=== PATIENT | male | born 1940 | race Caucasian/White ===

== ENCOUNTER 2017-07-06 12:39 | Inpatient (IN) | payer OTHER ==
[~2017-07-06] VITALS: Ht 180.3 cm; Wt 114.8 kg
[2017-07-06 14:31] VITALS: BP 125/73
[2017-07-06 15:23] LABS: CALCIUM 9.1 mg/dL (8.5-10.1); CREATININE 1.3 mg/dL (0.6-1.3); POTASSIUM 3.7 mmol/L (3.5-5.1)
[2017-07-06 15:24] LABS: INR 1.3; MPV 9.6 fl. (7.2-11.1); PROTIME 12.7 Seconds (9.20-11.50)
[2017-07-06 15:26] LABS: HEMOGLOBIN 13.6 gm/dL (14.0-18.0)
[2017-07-06 15:28] LABS: TOTAL BILIRUBIN 16.7 mg/dL (<0.1-1.0); TOTAL PROTEIN 7.4 g/dL (6.4-8.2)
[2017-07-06 15:36] LABS: ABSOLUTE BASOPHILS 0.1 thou/uL (0.0-0.2); ABSOLUTE LYMPHOCYTES 2.4 thou/uL (0.8-5.3); ABSOLUTE MONOCYTES 0.5 thou/uL (0.0-1.2); ABSOLUTE NEUTROPHILS 10.1 thou/uL (1.6-8.1); BASOPHILS 0.7 %; EOSINOPHILS 0.1 %; HEMATOCRIT 40.7 % (42.0-52.0); LYMPHOCYTES 18.6 %; MCHC 33.3 g/dL (28.0-37.0); MONOCYTES 3.7 %; NUCLEATED RBCS 0 /100WBC; PLATELET COUNT* 409 thou/uL (150-400); POLYS 76.9 %; RBC 4.52 mil/uL (4.50-6.00); RDW-CV 20.9 % (10.5-14.5); WBC 13.1 thou/uL (4.0-11.0)
[2017-07-06 15:53] LABS: ANISOCYTOSIS 1+; PLATELET ESTIMATE INCREASED
[2017-07-06 15:54] LABS: POIKILOCYTOSIS 1+; TARGET CELLS 1+
[2017-07-06 20:00] VITALS: BP 122/56
[2017-07-07 05:02] LABS: ALBUMIN 1.6 g/dL (3.4-5.0); CALCIUM 8.4 mg/dL (8.5-10.1); CREATININE 1.2 mg/dL (0.6-1.3); POTASSIUM 3.9 mmol/L (3.5-5.1); TOTAL BILIRUBIN 11.6 mg/dL (<0.1-1.0); TOTAL PROTEIN 5.8 g/dL (6.4-8.2)
[2017-07-07 05:56] LABS: RDW-CV 20.5 % (10.5-14.5)
[2017-07-07 05:58] LABS: HEMATOCRIT 33.7 % (42.0-52.0); MCH 30.1 pg (26.0-34.0); MCV 88.3 fL (80.0-100.0); NUCLEATED RBCS 0 /100WBC; PLATELET COUNT* 339 thou/uL (150-400); RBC 3.81 mil/uL (4.50-6.00); WBC 12.3 thou/uL (4.0-11.0)
[2017-07-07 06:13] LABS: HEMOGLOBIN 11.5 gm/dL (14.0-18.0)
[2017-07-07 07:04] LABS: ABSOLUTE LYMPHOCYTES 0.7 thou/uL (0.8-5.3); ABSOLUTE MONOCYTES 0.7 thou/uL (0.0-1.2); ABSOLUTE NEUTROPHILS 10.8 thou/uL (1.6-8.1); ANISOCYTOSIS 2+; PLATELET ESTIMATE ADEQUATE; TARGET CELLS 2+
[2017-07-07 09:00] VITALS: BP 138/78
[2017-07-07 16:00] VITALS: BP 135/71
[2017-07-07 20:35] VITALS: BP 129/64
[2017-07-08 04:33] LABS: MCV 88.2 fL (80.0-100.0); NUCLEATED RBCS 0 /100WBC
[2017-07-08 04:35] LABS: ABSOLUTE LYMPHOCYTES 3.9 thou/uL (0.8-5.3); ABSOLUTE MONOCYTES 0.5 thou/uL (0.0-1.2); ABSOLUTE NEUTROPHILS 4.1 thou/uL (1.6-8.1); BASOPHILS 0.3 %; EOSINOPHILS 0.4 %; HEMATOCRIT 34.4 % (42.0-52.0); HEMOGLOBIN 11.8 gm/dL (14.0-18.0); LYMPHOCYTES 45.7 %; MCH 30.3 pg (26.0-34.0); MCHC 34.4 g/dL (28.0-37.0); MONOCYTES 5.6 %; MPV 8.8 fl. (7.2-11.1); PLATELET COUNT* 352 thou/uL (150-400); RDW-CV 20.8 % (10.5-14.5); WBC 8.5 thou/uL (4.0-11.0)
[2017-07-08 04:49] LABS: ALBUMIN 1.6 g/dL (3.4-5.0); CALCIUM 8.1 mg/dL (8.5-10.1); CREATININE 1.1 mg/dL (0.6-1.3); MAGNESIUM 1.6 mg/dL (1.8-2.4); PHOSPHORUS* 3.1 mg/dL (2.5-4.9); POTASSIUM 4.2 mmol/L (3.5-5.1); PREALBUMIN 11.3 mg/dL (18.0-35.7); TOTAL BILIRUBIN 11.6 mg/dL (<0.1-1.0); TOTAL PROTEIN 5.7 g/dL (6.4-8.2)
[2017-07-08 06:07] LABS: URINE BLOOD NEGATIVE (Negative); URINE CLARITY CLEAR; URINE COLOR BROWN; URINE GLUCOSE-RANDOM 1+ (Negative); URINE KETONES NEGATIVE (Negative); URINE LEUKOCYTES-REFLEX NEGATIVE (Negative); URINE NITRITE-REFLEX NEGATIVE (Negative); URINE PROTEIN NEGATIVE (Negative); URINE UROBILINOGEN >= 8.0 E.U./dl (0.2-1.0)
[2017-07-08 06:14] LABS: AMP/METHAMP Negative (Negative); BARBITURATES Negative (Negative); BENZODIAZEPINES Negative (Negative); COCAINE Negative (Negative); METHADONE Negative (Negative); OPIATES Negative (Negative); PCP Negative (Negative); THC Negative (Negative)
[2017-07-08 06:24] LABS: ICTOTEST (BILI CONFIRMATORY) Positive (Negative); URINE BILIRUBIN 3+ (Negative)
[2017-07-08 08:30] VITALS: BP 132/68
[2017-07-08 20:00] VITALS: BP 122/69
[2017-07-09 00:09] VITALS: BP 150/78
[2017-07-09 04:34] LABS: HEMATOCRIT 33.6 % (42.0-52.0); HEMOGLOBIN 11.7 gm/dL (14.0-18.0); MCH 31.1 pg (26.0-34.0); MCHC 34.8 g/dL (28.0-37.0); MCV 89.4 fL (80.0-100.0); MPV 8.7 fl. (7.2-11.1); RBC 3.76 mil/uL (4.50-6.00); RDW-CV 20.4 % (10.5-14.5); WBC 7.6 thou/uL (4.0-11.0)
[2017-07-09 05:04] LABS: ALBUMIN 1.6 g/dL (3.4-5.0); CALCIUM 7.9 mg/dL (8.5-10.1); CREATININE 1.2 mg/dL (0.6-1.3); POTASSIUM 3.7 mmol/L (3.5-5.1); TOTAL BILIRUBIN 8.9 mg/dL (<0.1-1.0); TOTAL PROTEIN 5.5 g/dL (6.4-8.2)
[2017-07-09 07:30] VITALS: BP 143/79
[2017-07-09 20:20] VITALS: BP 143/75
[2017-07-10 02:09] LABS: HEPATITIS B SURFACE AG Negative (Negative)
[2017-07-10 05:04] LABS: HEMATOCRIT 34.3 % (42.0-52.0); HEMOGLOBIN 11.6 gm/dL (14.0-18.0); MCH 30.2 pg (26.0-34.0); MCHC 33.7 g/dL (28.0-37.0); MCV 89.6 fL (80.0-100.0); MPV 8.6 fl. (7.2-11.1); RBC 3.83 mil/uL (4.50-6.00); RDW-CV 19.3 % (10.5-14.5)
[2017-07-10 05:35] LABS: ALBUMIN 1.6 g/dL (3.4-5.0); CALCIUM 7.9 mg/dL (8.5-10.1); CREATININE 1.3 mg/dL (0.6-1.3); POTASSIUM 4.1 mmol/L (3.5-5.1); TOTAL BILIRUBIN 8.7 mg/dL (<0.1-1.0); TOTAL PROTEIN 5.6 g/dL (6.4-8.2)
[2017-07-10 13:11] LABS: CA 19-9 71 U/mL (0-35)
[2017-07-10 16:35] VITALS: BP 158/78
[2017-07-10 20:20] VITALS: BP 150/81
[2017-07-11 05:28] LABS: ALBUMIN 1.5 g/dL (3.4-5.0); CALCIUM 7.7 mg/dL (8.5-10.1); CREATININE 1.2 mg/dL (0.6-1.3); POTASSIUM 3.8 mmol/L (3.5-5.1); TOTAL BILIRUBIN 7.6 mg/dL (<0.1-1.0); TOTAL PROTEIN 5.2 g/dL (6.4-8.2)
[2017-07-11 05:35] LABS: ABSOLUTE BASOPHILS 0.1 thou/uL (0.0-0.2); ABSOLUTE EOSINOPHILS 0.1 thou/uL (0.0-0.7); ABSOLUTE LYMPHOCYTES 2.5 thou/uL (0.8-5.3); ABSOLUTE MONOCYTES 0.8 thou/uL (0.0-1.2); ABSOLUTE NEUTROPHILS 5.1 thou/uL (1.6-8.1); BASOPHILS 0.9 %; EOSINOPHILS 1.5 %; HEMOGLOBIN 11.3 gm/dL (14.0-18.0); LYMPHOCYTES 29.4 %; MCH 30.5 pg (26.0-34.0); MCHC 34.2 g/dL (28.0-37.0); MCV 89.1 fL (80.0-100.0); MONOCYTES 9.5 %; MPV 8.7 fl. (7.2-11.1); NUCLEATED RBCS 0 /100WBC; PLATELET COUNT* 301 thou/uL (150-400); POLYS 58.7 %; RBC 3.71 mil/uL (4.50-6.00); RDW-CV 18.8 % (10.5-14.5); WBC 8.6 thou/uL (4.0-11.0)
[2017-07-11 05:49] LABS: PREALBUMIN 10.1 mg/dL (18.0-35.7)
[2017-07-11 08:00] VITALS: BP 108/60
[2017-07-11 15:19] VITALS: BP 108/60
--- NOTE | 2017-07-12 16:13 | CON ---
[address] [address] CONSULTATION Name: KRYSTLE ALVAREZ Room: [address]#: [id number] Admission: 07/06/17 Attend Phys: Ryan Logan MD Discharge: 07/11/17 Date of : 42 Report #: [id number] THIS REPORT FOR: //name// CC: Wen Logan DATE OF SERVICE: 07/06/2017 REQUESTING PHYSICIAN: Ryan Logan M.D. HISTORY OF PRESENT ILLNESS: This is a 76-year-old male with a history of upper and lower endoscopy in April, which was significant for a few small polyps but otherwise negative. He reports that for the past 2 months, he has lost a total of 20 pounds as he has no appetite. The patient also had noticed that his urine had turned dark about 8-10 days ago. It was also brought to his attention that his skin has turned yellow. The patient denies any abdominal pain but complains of pruritus. He denies any nausea, vomiting or constipation, but reports that since his colonoscopy in April of 2017, he has had loose stool. PAST MEDICAL HISTORY: Significant for history of gastroesophageal reflux disease, gallbladder stones, kidney stones, jaundice and abnormal liver enzymes. ALLERGIES: Please refer to hospital MAR. MEDICATIONS: Please refer to hospital MAR. SOCIAL HISTORY: The patient denies alcohol use but smokes cigarettes. He lives at home with his family. FAMILY HISTORY: Negative for GI malignancy. PHYSICAL EXAMINATION: VITAL SIGNS: Reveals blood pressure of 125/73, respirations 16, pulse 67 and temperature is 98.4. LUNGS: Clear. CARDIOVASCULAR: Regular. ABDOMEN: Soft, mildly tender to palpation in the right lower quadrant. Bowel sounds are positive. SKIN: The patient is jaundiced and has multiple skin lesions as he has been scratching his arms. RADIOLOGICAL DATA: CT of abdomen and pelvis was obtained. This was significant for cholelithiasis without any evidence of acute cholecystitis. He also has diverticulosis without diverticulitis. Per this study, the liver, spleen and pancreas appeared normal. He has evidence of [place] [address] CONSULTATION Name: ALVAREZKRYSTLE Og Room: [address]#: [id number] Admission: 07/06/17 Attend Phys: Ryan Logan MD Discharge: 07/11/17 Date of : 42 Report #: [id number] ASSESSMENT AND PLAN: The patient with jaundice, weight loss and anorexia. Given his age, we fear for malignancies such as cholangiocarcinoma. We are limited with the ordering MRI as he has a metal in his leg. Ultrasound has been ordered and is pending result. I will order cancer markers hydrate him and repeat LFTs. I will also order autoimmune markers to rule out autoimmune hepatitis versus sclerosing cholangitis versus primary biliary cirrhosis. I will make further recommendation once we review the ultrasound and lab results. <ELECTRONICALLY SIGNED> By: Kaylie Dia MD 07/12/17 1613 1558 2057Kaylie Dia MD /nt
== END 2017-07-11 16:14 | disposition home or self-care (01) | DRG 444 ==
LOC: M.ICU 12:39 → M.ORTHSURG 13:50
PROVIDERS: Nurse Practitioner Family; Surgery; ADMIT Internal Medicine
DX: K80.41 Calculus of bile duct with cholecystitis, unspecified, with obstruction (principal); R65.11 Systemic inflammatory response syndrome (SIRS) of non-infectious origin with acute organ dysfunction; E44.1 Mild protein-calorie malnutrition; K76.89 Other specified diseases of liver; E11.9 Type 2 diabetes mellitus without complications; F17.220 Nicotine dependence, chewing tobacco, uncomplicated; E66.9 Obesity, unspecified; E80.6 Other disorders of bilirubin metabolism; R74.0 Nonspecific elevation of levels of transaminase and lactic acid dehydrogenase [LDH]; K21.9 Gastro-esophageal reflux disease without esophagitis; Z87.442 Personal history of urinary calculi; Z68.35 Body mass index [BMI] 35.0-35.9, adult; Z79.899 Other long term (current) drug therapy; Z90.49 Acquired absence of other specified parts of digestive tract; Z23 Encounter for immunization

== ENCOUNTER 2017-08-24 13:20 | Emergency (ER) | payer OTHER ==
[~2017-08-24] VITALS: Ht 180.3 cm; Wt 81.7 kg
[2017-08-24 14:05] LABS: ABSOLUTE BASOPHILS 0.1 thou/uL (0.0-0.2); ABSOLUTE LYMPHOCYTES 2.3 thou/uL (0.8-5.3); ABSOLUTE NEUTROPHILS 7.7 thou/uL (1.6-8.1); EOSINOPHILS 0.2 %; HEMATOCRIT 42.1 % (42.0-52.0); HEMOGLOBIN 14.5 gm/dL (14.0-18.0); LYMPHOCYTES 20.9 %; MCH 30.8 pg (26.0-34.0); MCHC 34.5 g/dL (28.0-37.0); MCV 89.3 fL (80.0-100.0); MONOCYTES 8.5 %; MPV 8.4 fl. (7.2-11.1); NUCLEATED RBCS 0 /100WBC; PLATELET COUNT* 396 thou/uL (150-400); POLYS 69.4 %; RBC 4.71 mil/uL (4.50-6.00); RDW-CV 14.1 % (10.5-14.5); WBC 11.2 thou/uL (4.0-11.0)
[2017-08-24 14:13] LABS: CALCIUM 9.2 mg/dL (8.5-10.1); CREATININE 2.1 mg/dL (0.6-1.3); POTASSIUM 3.2 mmol/L (3.5-5.1)
[2017-08-24 14:14] LABS: APTT 27.8 Seconds (25.0-31.3); INR 1.2; PROTIME 11.9 Seconds (9.20-11.50)
[2017-08-24 14:23] LABS: ALBUMIN 2.6 g/dL (3.4-5.0); TOTAL BILIRUBIN 2.5 mg/dL (<0.1-1.0); TOTAL PROTEIN 8.5 g/dL (6.4-8.2)
[2017-08-24] MEDS ORDERED: ADULT ASPIRIN R81 MG PO (15:07)
[2017-08-24] MEDS ORDERED: LASIX 40 MG TAB40 M2 PO (15:08)
[2017-08-24] MEDS ORDERED: HYDROCODONE-AP1 EAC6 PO (15:08)
[2017-08-24] MEDS ORDERED: VITAMIN D2000 UNIT PO (15:08)
[2017-08-24] MEDS ORDERED: PROBIOTIC1 EAC1 PO (15:09)
[2017-08-24] MEDS ORDERED: LACTULOSE10 GM/152 PO (15:13)
[2017-08-24] MEDS ORDERED: MIDODRINE HCL 55 M1 PO (15:14)
[2017-08-24] MEDS ORDERED: METFORMIN HCL500 MG PO (15:14)
[2017-08-24] MEDS ORDERED: FLOMAX0.4 MG PO (15:15)
[2017-08-24] MEDS ORDERED: OMEPRAZOLE40 MG PO (15:15)
[2017-08-24] MEDS ORDERED: KLOR-CON 1010 MEQ PO (15:15)
--- NOTE | 2017-08-24 16:19 | EKG ---
[place] [address] ELECTROCARDIOGRAM REPORT Name: ANTONIOKRYSTLE Ramsey Room: [facility]#: [id number] Admission: 08/24/17 Attend Phys: Discharge: Date of : 42 Report #: [id number] THIS REPORT FOR: //name// [facility] ED Test Date: 2017-08-24 Test Time: 13:40:39 Pat Name: KRYSTLE ALVAREZ Department: Room: Gender: Small Lot Operator: Nydia PUENTE : 1940 Requested By: Sherif Rodriguez Order Number: [id number] Reading MD: Morgan Martinez Measurements Intervals [place] Rate: 92 P: [place]: QRS: -83 QRSD: 165 T: 46 QT: 423 QTc: 524 Interpretive Statements Accelerated junctional rhythm RBBB and LAFB Probable left ventricular hypertrophy No previous ECG available for comparison Electronically Signed On 08-24-2017 16:19:10 CDT by Morgan Martinez [email or web address] <ELECTRONICALLY SIGNED> By: Morgan Martinez MD, [facility] 08/24/17 1619 1340 1340 Morgan Martinez MD, FACC /EPI
[2017-08-24 16:35] VITALS: BP 111/74
== END 2017-08-24 16:37 | disposition still patient (30) ==
LOC: M.ERS 13:20
PROVIDERS: Emergency Medicine Emergency Medical Services
DX: N17.9 Acute kidney failure, unspecified (principal); I10 Essential (primary) hypertension; E66.9 Obesity, unspecified; E11.9 Type 2 diabetes mellitus without complications; Z90.49 Acquired absence of other specified parts of digestive tract; Z96.652 Presence of left artificial knee joint